=== PATIENT | female | born 1965 | race Caucasian/White ===

== ENCOUNTER 2020-10-27 07:58 | Day surgery (SDC) | payer OTHER ==
[~2020-10-27 07:58] MED LIST: Lactated Ringers 1,000 ML IV SCH; Sodium Chloride 0.9% 10 ML Syringe FLUSH PRN
[2020-10-27] MEDS ORDERED: Midazolam 1 MG/ML 2 ML SDV ONE ×2 (08:20→09:02)
[2020-10-27] MEDS ORDERED: Propofol 200 MG/20 ML SDV ONE ×3 (08:20→09:55)
[2020-10-27] MEDS ORDERED: Lidocaine 1% 50 MG/5 ML Syringe ONE (09:02)
--- NOTE | 2020-10-27 09:07 | PCM.PN ---
- General Info Date of Service: 10/27/20 - Review of Systems Systems Review Comment:: 55-year-old female here for left wrist ganglion cystectomy. The site of the ganglion is confirmed with the patient and marked. The proposed procedure is again discussed with the patient. Her recent history and physical is reviewed and no significant changes are noted. She agrees to proceed excepting risks. - Patient Data Vitals - Most Recent: Last Vital Signs Temp 98.1 F 10/27/20 08:20 Pulse 75 10/27/20 08:20 Resp 18 10/27/20 08:20 BP 128/78 10/27/20 08:20 Pulse Ox 98 10/27/20 08:20 Weight - Most Recent: 81.647 kg Med Orders - Current: Current Medications Lactated Ringer's (Ringers, Lactated) 1,000 mls @ 125 mls/hr IV ASDIRECTED ORIN Last Admin: 10/27/20 08:40 Dose: 125 mls/hr Documented by: Sodium Chloride (Saline Flush) 10 ml FLUSH ASDIRECTED PRN PRN Reason: Keep Vein Open Discontinued Medications Midazolam HCl (Versed 1 Mg/Ml) Confirm Administered Dose 4 mg .ROUTE .STK-MED ONE Stop: 10/27/20 08:21 Propofol (Diprivan 20 Ml) Confirm Administered Dose 600 mg .ROUTE .STK-MED ONE Stop: 10/27/20 08:21 Sepsis Event Note - Focused Exam Vital Signs: Vital Signs Temp Pulse Resp BP Pulse Ox 10/27/20 08:20 98.1 F 75 18 128/78 98 - Problem List Review Problem List Initiated/Reviewed/Updated: Yes - Assessment Assessment:: Left wrist ganglion cyst - Plan Plan:: Ganglion cystectomy
[2020-10-27] MEDS ORDERED: Bupivacaine 0.25% 10 ML SDV INJECT ONE (10:06)
--- NOTE | 2020-10-27 10:36 | PCM.OPNOTE ---
- General Post-Op/Procedure Note Date of Surgery/Procedure: 10/27/20 Operative Procedure(s): Left wrist ganglion cystectomy Findings: Moderate sized ganglion cyst left wrist Pre Op Diagnosis: Ganglion cyst left wrist Post-Op Diagnosis: Same Anesthesia Technique: Local, Regional Block (Elisha) Primary Surgeon: Bala Bowen Pathology: Ganglion cyst left wrist EBL in mLs: 20 Complications: None Condition: Good
[2020-10-27] MEDS ORDERED: Acetaminophen 325 MG Tab PO ONE (11:01)
--- NOTE | 2020-10-27 11:38 | OR ---
Date of Procedure: 10/27/2020 PREOPERATIVE DIAGNOSIS: Ganglion cyst, left wrist. POSTOPERATIVE DIAGNOSIS: Ganglion cyst, left wrist. PROCEDURE PERFORMED: Left wrist ganglion cystectomy. INDICATIONS FOR SURGERY: This 55-year-old female has developed a ganglion cyst on the volar aspect of her left wrist. This is becoming increasingly symptomatic and she comes for excision. FINDINGS: On the radial side of the volar aspect of the patient's left wrist, she has a moderate-sized ganglion cyst. The cyst wall is thin, heavily scarred in to the surrounding structures and contained clear synovial fluid. DESCRIPTION OF PROCEDURE: The patient was taken to the operating room. She was given IV regional anesthesia of the left arm and hand, which was then sterilely prepped and draped. A transversely oriented linear incision was made over the palpable and previously marked left wrist ganglion cyst. Dissection proceeded down onto the cyst wall. This was carefully from the surrounding structures. It appeared to be heavily scarred into some adjacent and deeper structures and the cyst wall was carefully dissected free and excised at its base. There was noted to be a small amount of bleeding from the area of deeper dissection. So in order to be sure the radial artery was uninjured, the wound was infiltrated with Marcaine and the tourniquet was let down. Small amount of arterial bleeding was noted from a small arterial branch and the bleeding was controlled with 4-0 and 5-0 superficially placed Prolene sutures. Once placed, the bleeding was completely controlled and there was a good pulsation noted in the radial artery without any evidence of injury to the artery itself. The wound was irrigated and then closed approximating the subcutaneous tissue with a 4-0 Vicryl and the skin with a running 4-0 Vicryl subcuticular stitch. Benzoin and Steri-Strips were applied. This was followed by antibiotic ointment and a sterile pressure dressing held in position with an Gunner bandage. The patient was then taken from the operating room in satisfactory condition. ESTIMATED BLOOD LOSS: 20 mL. COMPLICATIONS: None. PROGNOSIS: Good. DONATO Bowen MD /[id number]
== END 2020-10-27 11:12 | disposition home or self-care (01) ==
LOC: LL.SDS 07:58
PROVIDERS: ATTEND Surgery
DX: M67.432 Ganglion, left wrist (principal); F17.210 Nicotine dependence, cigarettes, uncomplicated; Z01.812 Encounter for preprocedural laboratory examination; Z20.822 Contact with and (suspected) exposure to COVID-19
CPT/HCPCS: 01810; A9270-GY; J2001; J2250; J2704; J3490; J7120

== ENCOUNTER 2022-08-04 20:31 | Emergency (ER) | payer OTHER ==
[2022-08-04] MEDS ORDERED: Sodium Chloride 0.9% 10 ML Syringe FLUSH PRN (20:48)
[2022-08-04] MEDS ORDERED: Lactated Ringers 1,000 ML IV SCH (21:00)
[2022-08-04 21:19] LABS: ANION GAP 9.8 meq/L (7-15)
[2022-08-04] MEDS ORDERED: Iopamidol 612 MG/ML 100 ML Bottle IVPUSH STA (21:23)
[2022-08-04] MEDS ORDERED: cefTRIAXone 2 GM Vial IVPUSH SCH (22:00)
[2022-08-04 22:41] LABS: CORONAVIRUS COVID-19 NAA NEGATIVE (NEGATIVE); RESPIRATORY SYNCYTIAL VIR NAA NEGATIVE (NEGATIVE)
== END 2022-08-04 23:05 | disposition home or self-care (01) ==
LOC: LL.ED 20:31
DX: R59.0 Localized enlarged lymph nodes (principal); M19.90 Unspecified osteoarthritis, unspecified site; Z72.0 Tobacco use; Z79.899 Other long term (current) drug therapy; Z20.822 Contact with and (suspected) exposure to COVID-19
CPT/HCPCS: 0241U; 36415; 70491; 80053; 83605; 85025; 86140; 87081; 87430; 96361; 96374; 99283-25; J0696; J7120; Q9967

== ENCOUNTER 2024-10-23 12:20 | Emergency (ER) | payer OTHER | END 2024-10-23 13:20 | disposition home or self-care (01) | LOC: LL.ED 12:20 | DX: F41.9 Anxiety disorder, unspecified (principal); J10.1 Influenza due to other identified influenza virus with other respiratory manifestations; T48.6X5A Adverse effect of antiasthmatics, initial encounter; Z90.710 Acquired absence of both cervix and uterus; Z79.899 Other long term (current) drug therapy | CPT/HCPCS: 99283; 99284 ==